=== PATIENT | female | born 1985 | race Caucasian/White ===

== ENCOUNTER 2016-09-27 16:48 | Emergency (ER) | payer OTHER ==
[2016-09-27 16:54] VITALS: BP 114/72; PULSE 85; TEMP 98.5; BMI 21.7
--- NOTE | 2016-09-27 16:59 | PDOC ---
History of Present Illness - General History Source: Patient, Family, Old Records Exam Limitations: No Limitations - History of Present Illness Initial Comments: 09/27/16 18:15 The patient is a 31 year old, 5 week , female with a significant past medical history of and 2 LEEP procedures for abnormal PAPs, who presents to the emergency department today for further evaluation of pelvic cramping for 2 weeks and 2 episodes of vaginal bleeding today. The patient notes that her pelvic cramping felt normal to usual MP symptoms. The patient states that she took 4 home tests on 09/18/16 and was found to be by each test. The patient states that her first episode of vaginal bleeding was after she urinated today and noted what looked like brown dried blood on the toilet paper. The patient notes that the second episode of vaginal bleeding was 1.5 hours ago and was small brown clumps on the toilet paper. The patient notes that her LMP was 08/21/16. The patient reports associated gassiness and lethargy. The patient notes she had a sialolithotomy last Friday The patient denies dysuria. The patient denies fever, chills, and sweats. The patient denies nausea, vomiting, and diarrhea. The patient denies chest pain, cough, and shortness of breath. PAST MEDICAL HISTORY: and 2 LEEP for abnormal PAPs PAST SURGICAL HISTORY: Ginger Blue lymphedema FAMILY HISTORY: No pertinent history reported SOCIAL HISTORY: No D/A/T MEDICATIONS: Reviewed ALLERGIES: As per nursing notes <Rad Fuentes - Last Filed: 09/27/16 19:20> <Rolo Mcmillan - Last Filed: 09/27/16 19:27> - General Chief Complaint: Vaginal Bleeding Stated Complaint: VAG BLEED/CRAMPING/PRG Time Seen by Provider: 09/27/16 16:58 Past History <Rad Fuentes - Last Filed: 09/27/16 19:20> - Past Medical History Other medical history: DENIES - Reproductive History Is Patient Now?: Yes ( PER PT 5WKS) (#): 1 - Psycho/Social/Smoking Cessation Hx Anxiety: No Suicidal Ideation: No Smoking History: Never smoked Hx Alcohol Use: Yes Drug/Substance Use Hx: No Substance Use Type: Alcohol <Rolo Mcmillan - Last Filed: 09/27/16 19:27> - Past Medical History Allergies/Adverse Reactions: Allergies Allergy/AdvReac Type Severity Reaction Status Date / Time No Known Allergies Allergy Verified 09/27/16 16:50 Home Medications: Ambulatory Orders NK [No Known Home Medication] 09/27/16 Review of Systems - Review of Systems Able to Perform ROS?: Yes Comments:: 09/27/16 18:17 CONSTITUTIONAL: Present: Absent: Fever, Chills, Diaphoresis, Generalized Weakness, Malaise, Loss of Appetite HEENT: Absent: Rhinorrhea, Nasal Congestion, Throat Pain, Throat Swelling, Difficulty Swallowing, Mouth Swelling, Ear Pain, Eye Pain, Visual Changes CARDIOVASCULAR: Absent: Chest Pain, Syncope, Palpitations, Irregular Heart Rate, Lightheadedness , Peripheral Edema RESPIRATORY: Absent: Cough, Shortness of Breath, SOB with Exertion, Orthopnea, Wheezing, Stridor, Hemoptysis GASTROINTESTINAL: Absent: Abdominal pain, Abdominal Distension, Nausea, Vomiting, Diarrhea, Constipation, Melena, Hematochezia GENITOURINARY: Present: Pelvic cramping, Vaginal bleeding, gassiness Absent: Dysuria, Frequency, Urgency, Hesitancy, Flank Pain, Genital Pain MUSCULOSKELETAL: Absent: Myalgia, Arthralgia, Joint Swelling, Back pain, Neck Pain SKIN: Absent: Rash, Itching, Pallor HEMEATOLOGIC/IMMUNOLOGIC: Absent: Easy Bleeding, Easy Bruising, Lymphadenopathy, Frequent infections ENDOCRINE: Absent: Unexplained Weight Gain, Unexplained Weight Loss, Heat Intolerance, Cold Intolerance NEUROLOGIC: Absent: Headache, Focal Weakness, Paresthesias, Vertigo, Lightheadedness, Unsteady Gait, Seizure, Mental Status Changes, Incontinence PSYCHIATRIC: Present: Lethargy Absent: Anxiety, Depression <Rad Fuentes - Last Filed: 09/27/16 19:20> *Physical Exam - Vital Signs Last Vital Signs Temp Pulse Resp BP Pulse Ox 98.5 F 85 16 114/72 100 09/27/16 16:50 09/27/16 16:50 09/27/16 16:50 09/27/16 16:50 09/27/16 16:50 - Physical Exam Comments: 09/27/16 18:49 GENERAL: The patient is awake, alert, and fully oriented, in no acute distress. LUNGS: Breath sounds equal, clear to auscultation bilaterally. No wheezes, and no crackles. HEART: Regular rate and rhythm, normal S1 and S2 without murmur, rub or gallop. ABDOMEN: Soft, nontender, normoactive bowel sounds. No guarding, no rebound. No masses. EXTREMITIES: Normal range of motion, no edema. No clubbing or cyanosis. No cords , erythema, or tenderness. PSYCH: Normal mood, normal affect. SKIN: Warm, Dry, normal turgor, no rashes or lesions noted. PELVIC EXAMINATION: External genitalia: Normal without lesions. Vagina: Vault is with brown blood. Cervix: Long and closed with no cervical motion tenderness. Uterus: Nontender, normal in size. Adnexa: Nontender, without masses. <Rad Fuentes - Last Filed: 09/27/16 19:20> - Vital Signs Last Vital Signs Temp Pulse Resp BP Pulse Ox 98.5 F 85 16 114/72 100 09/27/16 16:50 09/27/16 16:50 09/27/16 16:50 09/27/16 16:50 09/27/16 16:50 <Rolo Mcmillan - Last Filed: 09/27/16 19:27> ED Treatment Course - LABORATORY CBC & Chemistry Diagram: 09/27/16 17:34 09/27/16 17:34 - ADDITIONAL ORDERS Additional order review: Laboratory Results 09/27/16 09/27/16 17:34 17:34 Sodium 139 Potassium 3.8 Chloride 105 Carbon Dioxide 27 Anion Gap 7 L BUN 11 Creatinine 0.5 L Creat Clearance w eGFR > 60 Random Glucose 91 Calcium 9.8 AST 19 ALT 15 Alkaline Phosphatase 43 Total Protein 6.9 Albumin 4.5 Urine Color Yellow Urine Appearance Clear Urine pH 5.5 Ur Specific [place] 1.025 Urine Protein 1+ H Urine Glucose (UA) Negative Urine Ketones 1+ H Urine Blood 3+ H Urine Nitrite Negative Urine Bilirubin Negative Urine Urobilinogen 0.2 e.u/dl Ur Leukocyte Esterase 1+ H Urine RBC 0-2 Urine WBC 5-10 Ur Epithelial Cells Moderate Urine Bacteria Few Urine HCG, Qual Positive 09/27/16 17:34 RBC 4.47 MCV 89.3 MCHC 33.6 RDW 11.7 MPV 9.5 Neutrophils % 56.4 Lymphocytes % 30.2 Monocytes % 11.5 H Eosinophils % 0.4 Basophils % 1.5 - RADIOLOGY Radiology Studies Ordered: 09/27/16 19:03 Imagin. Transvaginal and Transvesical US Discussion: The uterus measures 9 x 4.6 cm. There are a couple of tiny nabothian cysts in the cervix. Endometrial stripe measures 1.8 cm in AP dimension with a heterogeneous echotexture and a hypoechoic density, anteriorly measuring 9 mm which is nonspecific. A small submucosal fibroid cannot be excluded. Tiny cystic density is noted measuring 3.5 mm. Right ovary measures 3.9 x 2.2 x 4.8 cm with a cyst/dominant follicle measuring 1.2 x 0.8 cm. Left ovary measures 2.3 x 1.9 cm with a small cyst/follicle. Normal vascular flow in both ovaries. There is no free fluid in the cul-de-sac Impression: Heterogeneously thickened endometrium measuring 1.8 cm in AP dimension with a 3.5 mm cystic density/gestation sac like structure identified . Endometrium demonstrates heterogeneous echotexture with a hypoechoic density anteriorly measuring 1 cm. Rule out blood clots versus submucosal fibroid. Correlation with serial quantitative serum beta hCG and follow-up ultrasound is recommended Reviewed and interpreted by radiologist Dr. Pavithra Lagunas MD. <Rad Fuentes - Last Filed: 09/27/16 19:20> - LABORATORY CBC & Chemistry Diagram: 09/27/16 17:34 09/27/16 17:34 <Rolo Mcmillan - Last Filed: 09/27/16 19:27> Medical Decision Making - Medical Decision Making 09/27/16 19:25 Patient with first trimester vaginal bleeding. Differential diagnosis includes ectopic , incomplete , or threatened . On my examination, the cervical os is closed and there is no focal tenderness. On ultrasound examination there is blood in the uterine cavity without a clear intrauterine . There are no adnexal masses. There is no free pelvic fluid. Beta hCG quantitative level is pending at the time of my signout. Blood type is also pending. Patient endorsed to Dr. Charley Aguilera for follow-up of these results. Patient has follow-up with her primary [facility] doctor on Friday. She will be given a copy of all of her results to bring to her appointment. The scribe's documentation has been prepared under my direction and personally reviewed by me in its entirety. I have confirmed that the note above accurately reflects all work, treatment, procedures, and medical decision- making performed by me. <Rolo Mcmillan - Last Filed: 09/27/16 19:27> *DC/Admit/Observation/Transfer - Attestations Scribe Attestion: 09/27/16 18:17 Documentation prepared by Rad Fuentes, acting as medical billing assistant for Rolo Mcmillan MD. <Rad Fuentes - Last Filed: 09/27/16 19:20> <Rolo Mcmillan - Last Filed: 09/27/16 19:27> Diagnosis at time of Disposition: Threatened in first trimester - Discharge Dispostion Disposition: HOME Condition at time of disposition: Stable
[2016-09-27 17:44] LABS: PH,URINE 5.5 (4.5-8); URINE APPEARANCE Clear; URINE BILIRUBIN Negative (NEGATIVE); URINE GLUCOSE (UA) Negative (NEGATIVE); URINE KETONE 1+ (NEGATIVE); URINE NITRITE Negative (NEGATIVE); URINE UROBILINOGEN 0.2 E.U/dl (0.2-1.0)
[2016-09-27 17:45] LABS: URINE BLOOD 3+ (NEGATIVE); URINE PROTEIN 1+ (NEGATIVE)
[2016-09-27 17:46] LABS: URINE COLOR YELLOW; URINE LEUK ESTERASE 1+ (NEGATIVE)
[2016-09-27 17:47] LABS: BASOPHIL 1.5 % (0-2.0); EOSINOPHIL 0.4 % (0-4.5); MCHC 33.6 g/dl (32.0-36.0); MEAN CELL VOLUME 89.3 fl (80-96); MEAN PLT VOLUME 9.5 fl (7.5-11.1); NEUTROPHILS 56.4 % (42.8-82.8); PLATELET COUNT 318 K/MM3 (134-434); RDW 11.7 % (11.6-15.6); WHITE BLOOD COUNT 9.1 K/mm3 (4.0-10.0)
[2016-09-27 17:53] LABS: URINE RBC 0-2 /hpf (0-3)
[2016-09-27 17:54] LABS: URINE BACTERIA FEW /hpf (NEGATIVE)
[2016-09-27 17:59] LABS: ALBUMIN 4.5 g/dl (3.5-5.0); ALK PHOS 43 U/L (32-92); ANION GAP 7 (8-16); CALCIUM 9.8 mg/dl (8.4-10.2); CO2 27 mmol/L (22-28); CREATININE 0.5 mg/dl (0.6-1.3); GLUCOSE,RANDOM 91 mg/dl (74-106); SGOT/AST 19 U/L (10-42); SGPT/ALT 15 U/L (10-40); TOT PROT 6.9 g/dl (6.4-8.3)
--- NOTE | 2016-09-27 20:10 | PDOC ---
*Physical Exam - Vital Signs Last Vital Signs Temp Pulse Resp BP Pulse Ox 98.5 F 85 16 114/72 100 09/27/16 16:50 09/27/16 16:50 09/27/16 16:50 09/27/16 16:50 09/27/16 16:50 ED Treatment Course - LABORATORY CBC & Chemistry Diagram: 09/27/16 17:34 09/27/16 17:34 - ADDITIONAL ORDERS Additional order review: Laboratory Results 09/27/16 09/27/16 09/27/16 17:34 17:34 17:34 Sodium 139 Potassium 3.8 Chloride 105 Carbon Dioxide 27 Anion Gap 7 L BUN 11 Creatinine 0.5 L Creat Clearance w eGFR > 60 Random Glucose 91 Calcium 9.8 AST 19 ALT 15 Alkaline Phosphatase 43 Total Protein 6.9 Albumin 4.5 Beta HCG, Quant 63.2 Urine Color Yellow Urine Appearance Clear Urine pH 5.5 Ur Specific [place] 1.025 Urine Protein 1+ H Urine Glucose (UA) Negative Urine Ketones 1+ H Urine Blood 3+ H Urine Nitrite Negative Urine Bilirubin Negative Urine Urobilinogen 0.2 e.u/dl Ur Leukocyte Esterase 1+ H Urine RBC 0-2 Urine WBC 5-10 Ur Epithelial Cells Moderate Urine Bacteria Few Urine HCG, Qual Positive Blood Type O POSITIVE Antibody Screen Negative 09/27/16 17:31 Sodium Potassium Chloride Carbon Dioxide Anion Gap BUN Creatinine Creat Clearance w eGFR Random Glucose Calcium AST ALT Alkaline Phosphatase Total Protein Albumin Beta HCG, Quant Urine Color Urine Appearance Urine pH Ur Specific [place] Urine Protein Urine Glucose (UA) Urine Ketones Urine Blood Urine Nitrite Urine Bilirubin Urine Urobilinogen Ur Leukocyte Esterase Urine RBC Urine WBC Ur Epithelial Cells Urine Bacteria Urine HCG, Qual Blood Type O POSITIVE Antibody Screen 09/27/16 17:34 RBC 4.47 MCV 89.3 MCHC 33.6 RDW 11.7 MPV 9.5 Neutrophils % 56.4 Lymphocytes % 30.2 Monocytes % 11.5 H Eosinophils % 0.4 Basophils % 1.5 Progress Note - Progress Note Progress Note: Care of this patient was transferred to [place] from Dr. Hunt at 1900 hrs. Patient is a 31-year-old female is proximal knee 5 weeks by dates. Patient is having vaginal bleeding. Ultrasound shows a questionable sac in the uterus adnexa's are normal. Patient's beta hCG is pending as well as her blood type. 20:00 Patient's beta hCG is 63. Her blood type is O+. Patient has an OB appointment for early next week which she will keep and follow -up with for repeat beta. This most likely is a incomplete with the low hCG however patient will need serial hCGs. *DC/Admit/Observation/Transfer Diagnosis at time of Disposition: Threatened in first trimester - Discharge Dispostion Disposition: HOME Condition at time of disposition: Stable - Patient Instructions Additional Instructions: You're given copies of your ultrasound and blood work. Is very important that you take them with you to follow-up with your OB doctor on Friday of next week. You'll need a repeat beta hCG to see if it is going up or down. Return to the emergency department immediately with ANY new, persistent or worsening symptoms. Continue any medications as previously prescribed by your physician. You should follow up with your primary doctor as soon as possible regarding today's emergency department visit. . Please make sure your doctor reviews the results of your emergency evaluation. Thank you for coming to the Emergency Department today for your care. It was a pleasure to see you today. Please note that your evaluation is INCOMPLETE until you follow-up with your doctor.
[2016-09-27 23:05] LABS: BILIRUBIN,TOTAL < 0.3 mg/dl (0.2-1.0)
== END 2016-09-27 20:20 | disposition home or self-care (01) ==
LOC: FER 16:48
DX: O26.891 Other specified pregnancy related conditions, first trimester (principal); O20.0 Threatened abortion; Z3A.01 Less than 8 weeks gestation of pregnancy
CPT/HCPCS: 36415; 76817-TC; 80053; 81003; 81015; 84702; 84703; 85025; 86850; 86900; 86901; 87086; 99283-25

== ENCOUNTER 2016-10-22 19:15 | Emergency (ER) | payer OTHER ==
[2016-10-22] MEDS ORDERED: KETOROLAC TROMETHAMINE 30 MG/1 ML VIAL IVPUSH ONE (19:18)
--- NOTE | 2016-10-22 19:22 | PDOC ---
History of Present Illness - History of Present Illness Initial Comments: 10/22/16 19:27 The patient is a 31 year old female with no past medical hx who presents to the ED complaining of pelvic and RLQ pain since yesterday. The patient notes her pain is constant. She reports intermittent episodes of worsening pain that is associated with sweating, chills, and nausea. She reports her pain is exacerbated with walking and riding in a car. The patient notes she had a miscarriage on September 28, 2016. She reports she came to the ED and had blood work and an ultrasound to confirm her miscarriage. The patient reports it is difficult for her to urinate or have a bowel movement secondary to her pain. She denies any vaginal bleeding, discharge, fever, dysuria, vomiting, back pain <Melida Tavarez - Last Filed: 10/22/16 21:52> <Chuckie Bautista - Last Filed: 10/22/16 22:23> - General Chief Complaint: Pain Stated Complaint: PELVIC PAIN Time Seen by Provider: 10/22/16 19:16 Past History <Melida Tavarez - Last Filed: 10/22/16 21:52> - Reproductive History (#): 1 - Psycho/Social/Smoking Cessation Hx Anxiety: No Suicidal Ideation: No Smoking History: Never smoked Hx Alcohol Use: Yes Drug/Substance Use Hx: No Substance Use Type: Alcohol <Chuckie Bautista - Last Filed: 10/22/16 22:23> - Past Medical History Allergies/Adverse Reactions: Allergies Allergy/AdvReac Type Severity Reaction Status Date / Time No Known Allergies Allergy Verified 10/22/16 19:16 Home Medications: Ambulatory Orders Amoxicillin/Potassium Clav [Augmentin 875-125 Tablet] 1 each PO BID #20 tablet 10/22/16 Methylergonovine Maleate [Methergine] 0.2 mg PO Q4HWA #6 tablet 10/22/16 Metronidazole [Flagyl -] 500 mg PO TID #21 tablet 10/22/16 Review of Systems - Review of Systems Able to Perform ROS?: Yes Comments:: 10/22/16 19:27 CONSTITUTIONAL: +Chills, sweats. Absent: fever GASTROINTESTINAL: +RLQ pain, nausea. Absent: vomiting GENITOURINARY: +Pelvic pain. Absent: dysuria, vaginal bleeding MUSCULOSKELETAL: Absent: back pain <Melida Tavarez - Last Filed: 10/22/16 21:52> *Physical Exam - Vital Signs Last Vital Signs Temp Pulse Resp BP Pulse Ox 98.8 F 82 14 107/67 100 10/22/16 19:15 10/22/16 19:15 10/22/16 19:15 10/22/16 19:15 10/22/16 19:15 <Melida Tavarez - Last Filed: 10/22/16 21:52> - Physical Exam General Appearance: Yes: Nourished, Appropriately Dressed. No: Apparent Distress Respiratory/Chest: positive: Lungs Clear, Normal Breath Sounds. negative: Respiratory Distress Cardiovascular: positive: Regular Rhythm, Regular Rate Female Pelvic Exam: positive: normal external exam, cervical os closed, normal adnexa, CMT, adnexal tenderness. negative: discharge, vaginal bleeding Gastrointestinal/Abdominal: positive: Normal Bowel Sounds, Tender (mild tenderness at rlq no g/r. no cvat.) Musculoskeletal: positive: Normal Inspection. negative: CVA Tenderness Integumentary: positive: Normal Color Neurologic: positive: Fully Oriented, Alert, Normal Mood/Affect, Normal Response , Motor Strength 5/5 <Chuckie Bautista - Last Filed: 10/22/16 22:23> ED Treatment Course - LABORATORY CBC & Chemistry Diagram: 10/22/16 19:39 10/22/16 19:39 - RADIOLOGY Radiograph Interpretation: 10/22/16 21:52 US/ <14WKS US Obstetrical ultrasound Clinical information: pelvic pain; status post spontaneous 09/2016 The study was performed utilizing transabdominal and transvaginal scanning. In comparison to a previous ultrasound exam of 09/27/2016 the endometrium appears somewhat less thickened currently measuring 1.4 cm, previously 1.8 cm. There is no longer definite visualization of a 3.5 mm fluid structure/ gestational sac within the endometrial cavity. A 1 cm hypoechoic focus described within the endometrium anteriorly on the previous exam cannot be definitely appreciated currently. Interval development of a complex 3.4 cm left ovarian cyst is noted. A 1.4 cm right ovarian cyst has developed containing a small amount internal debris or left. There is no Doppler evidence of ovarian torsion, sensitivity 70%. No free intraperitoneal fluid is identified. Impression: As discussed above. Reported By: Corey Bailey MD 10/22/16 2149 <Melida Tavarez - Last Filed: 10/22/16 21:52> - LABORATORY CBC & Chemistry Diagram: 10/22/16 19:39 10/22/16 19:39 - RADIOLOGY Radiology Studies Ordered: Category Date Time Status ABDOMEN & PELVIS CT W/O CONTR [CT] Stat CT Scan 10/22/16 19:18 Ordered <Chuckie Bautista - Last Filed: 10/22/16 22:23> Progress Note - Progress Note Progress Note: episodic rlq pain w/ diaphoresis and nausea concerning for either nephrolithiasis or ov cyst. appy low on the list but cant r/o US in sep failed to show big enough to torse ov cyst. will ct abd 7:41 pm urine preg weakly positive still possible to be from preg from [address] will do US and beta pelvic exam exquisit CMT and b/l adnexal tenderness cultures sent discussed w/ pmd coverage, will start abx and methergine and f/u in 2 days <Chuckie Bautista - Last Filed: 10/22/16 22:23> *DC/Admit/Observation/Transfer - Attestations Scribe Attestion: 10/22/16 19:27 Documentation prepared by Melida Tavarez, acting as medical professionals for Chuckie Bautista MD/DO. <Melida Tavarez - Last Filed: 10/22/16 21:52> <Chuckie Bautista - Last Filed: 10/22/16 22:23> Diagnosis at time of Disposition: Pain in pelvis - Discharge Dispostion Disposition: HOME Condition at time of disposition: Improved - Prescriptions Prescriptions: Amoxicillin/Potassium Clav [Augmentin 875-125 Tablet] 1 each PO BID #20 tablet Metronidazole [Flagyl -] 500 mg PO TID #21 tablet Methylergonovine Maleate [Methergine] 0.2 mg PO Q4HWA #6 tablet - Patient Instructions Additional Instructions: MOTRIN 600 MG 4 TIMES A DAY FOR 3-5 DAYS TAKE PRESCRIBED MEDICATIONS INSTRUCTED SEE DR. HURLEY ON FRIDAY (CALL TOMORROW) RETURN IF SEVERE PAIN, FEVER, VOMITING, OR NEW SYMPTOMS
[2016-10-22 19:26] VITALS: BP 107/67; PULSE 82; TEMP 98.8; BMI 22.6
[2016-10-22 19:27] LABS: PH,URINE 6.5 (4.5-8); URINE APPEARANCE Clear; URINE BILIRUBIN Negative (NEGATIVE); URINE BLOOD Trace-lysed (NEGATIVE); URINE GLUCOSE (UA) Negative (NEGATIVE); URINE KETONE Negative (NEGATIVE); URINE LEUK ESTERASE Negative (NEGATIVE); URINE NITRITE Negative (NEGATIVE); URINE PROTEIN Negative (NEGATIVE); URINE UROBILINOGEN 0.2 E.U/dl (0.2-1.0)
[2016-10-22 19:31] LABS: URINE COLOR YELLOW
[2016-10-22 19:47] LABS: BASOPHIL 1.2 % (0-2.0); EOSINOPHIL 0.1 % (0-4.5); MCH 30.3 pg (25.7-33.7); MCHC 34.3 g/dl (32.0-36.0); MEAN CELL VOLUME 88.4 fl (80-96); MEAN PLT VOLUME 9.6 fl (7.5-11.1); NEUTROPHILS 76.4 % (42.8-82.8); PLATELET COUNT 276 K/MM3 (134-434); RDW 11.5 % (11.6-15.6); WHITE BLOOD COUNT 13.1 K/mm3 (4.0-10.0)
[2016-10-22 20:04] LABS: CALCIUM 9.6 mg/dl (8.4-10.2); CREATININE 0.6 mg/dl (0.6-1.3)
[2016-10-22] MEDS ORDERED: metroNIDAZOLE 250 MG TABLET PO ONE (22:17)
[2016-10-22] MEDS ORDERED: AMOX TR/POT CLAV 875MG/125MG TABLETS (FP) ONE (22:20)
[2016-10-22] MEDS ORDERED: AMOX TR/POT CLAV 875MG/125MG TABLETS (FP) PO ONE (22:20)
[2016-10-22] MEDS ORDERED: metroNIDAZOLE 250 MG TABLET ONE (22:20)
== END 2016-10-22 22:27 | disposition home or self-care (01) ==
LOC: FER 19:15
PROC: 3E0333Z Introduction of Anti-inflammatory into Peripheral Vein, Percutaneous Approach (ICD-10-PCS; principal; 2016-10-22)
DX: R10.2 Pelvic and perineal pain (principal)
CPT/HCPCS: 36415; 76801-TC; 80048; 81003; 84702; 84703; 85025; 87491; 87591; 99284-25